=== PATIENT | female | born 1940 | race Caucasian/White ===

== ENCOUNTER → 2016-12-30 07:36 | Outpatient (CLI) | payer MEDICARE, OTHER ==
--- NOTE | ~2016-12-30 | ST ---
PATIENT:BHANU SHEPHERD MEDICAL RECORD: [id number] SEX: F LOCATION:[facility] ORDER #: ADMISSION DATE: 12/30/16 AGE OF PATIENT: 76 REFERRING PHYSICIAN: INTERPRETING PHYSICIAN: MARIAM WATT MD DATE OF SERVICE: 12/30/2016 NUCLEAR STRESS TEST PROCEDURE: Lexiscan stress test. PROCEDURE IN DETAIL: The patient was brought into the nuclear medicine department, placed on the nuclear medicine table in the supine position. The patient had her port accessed for injection of the nuclear tracer and the Lexiscan. The patient had the rest study done via the port at 08:28 a.m., 12.6 mCi of sestamibi was infused. The patient then underwent a standard stress test where Lexiscan was admitted via Standard protocol via the port and then 32.7 mCi of sestamibi was injected at 10:30 a.m. The patient tolerated the procedure well. The patient was in a regular sinus rhythm, heart rate 76. She was in AFib with a heart rate of 76 and peak heart rate after injection 95. Hemodynamically, the patient was stable throughout the procedure and procedure was terminated because of completion. FINDINGS: Image quality was very good. The patient has evidence of mild apical reversible ischemia. The overall ejection fraction was normal at 68%. IMPRESSION: Mild reversible ischemia in the apical region, mild anterior ischemia with preserved LV systolic function. RECOMMENDATIONS: Clinical correlation, however, in the right context, it may be reasonable to go forward with coronary angiography. TRANSINT:[id number] Voice Confirmation ID: [id number] DOCUMENT ID: [id number] MARIAM WATT MD CC: [id number] DICTATION DATE: 12/31/16919 TARIFF COMPILING CLERK: 12/31/16 1422 DEP CLI 12/30/16 [place] [id number] [place] [id number]
== END | disposition home or self-care (01) ==
LOC: D.NM 07:36
DX: I20.9 Angina pectoris, unspecified (principal)

== ENCOUNTER 2017-06-17 07:00 | Outpatient (CLI) | payer MEDICARE, OTHER ==
[~2017-06-17] VITALS: Ht 165.1 cm; Wt 53.6 kg
--- NOTE | ~2017-06-17 | HEMODYNAMI ---
PATIENT:BHANU SHEPHERD MEDICAL RECORD: [id number] : 36 LOCATION:[facility] ADMISSION DATE: 06/17/17 Generatedon:06/17/201710:31 Patient name: BHANU SHEPHERD Patient #: [id number] SSN: : Date of study: 06/17/2017 Page: Of Hemodynamic Procedure Report Patient Data Patient Demographics Procedure consent was obtained First Name: BHANU Gender: Female Last Name: JOAO : 1940 [facility] Initial: RHONDA Age: 77 year(s) Patient #: [id number] Race: Unknown Additional ID: [id number] Contact details Address: [address] [place] [address] State: [place] City: [place] Zip code: [address] Past Medical History Allergies Allergen Reaction Date Comments Reported Other allergy 06/17/2017 Sulfa, Warfarin Admission Admission Data Admission Date: 06/17/2017 Admission Time: 7:00 Admit Source: Other Lab Results Lab Result Date: 06/17/2017 Lab Result Time: 7:40 Biochemistry Name Units Result Min Max BUN mg/dl 16 --(---*)-- 7 18 Creatinine mg/dl 0.9 --(-*--)-- 0.6 1.3 CBC Name Units Result Min Max Hematocrit % 37.2 *-(----)-- 42 54 Hemoglobin g/dl 12.2 *-(----)-- 13.5 17.5 Procedure Procedure Types Cath Procedure Diagnostic Procedure Sedation Charges Moderate Sedation up to 15 minutes PPM/ICD PPM Dual Implant Peripheral Cath Diagnostic Procedure Venography Extremity Left Upper Ext. Venagram Procedure Description Procedure Date Procedure Date: 06/17/2017 Procedure Start Time: 9:54 Procedure End Time: 10:26 Procedure Staff Name Function Jed Goldman MD Performing Physician Jonathan Sandoval RT Monitor Michele Chong RT Scrub Gage Jennings RN Nurse Procedure Data Cath Procedure Fluoroscopy Diagnostic fluoroscopy Total fluoroscopy Time: 4.4 time: 4.4 min min Diagnostic fluoroscopy Total fluoroscopy dose: 38 dose: 38 mGy mGy Contrast Material Contrast Material Type Amount (ml) Visipaque 270 10 Estimated blood loss: 10 ml Procedure Complications No complications Procedure Medications Medication Administration Route Dosage Oxygen NC 2 l/min Heparin Flush Bag added to field 2 bags (1000units/500ml NS) 0.9% NaCl I.V. 100 ml/hr Ancef (1Gm/50ml NS) I.V.P.B 1 g Ancef Irrigation Topical 1 g (1gm/500ml NS) Fentanyl I.V. 50 mcg Versed I.V. 1 mg Fentanyl I.V. 50 mcg Versed I.V. 1 mg Versed I.V. 2 mg Hemodynamics Rest Heart Rate: 82 (bpm) Snapshots Pre Cath Intra NCS Post Cath Vital Signs Time Heart Resp SPO2 etCO2 NIBP (mmHg) Rhythm Pain Sedation Rate (ipm) (%) (mmHg) Status Level (bpm) 9:35:18 99 14 98 0 153/87(128) NSR 0 (11) 10(A) , No pain 9:39:36 74 16 97 0 167/81(125) NSR 0 (11) 10(A) , No pain 9:43:58 82 19 93 0 162/88(127) NSR 0 (11) 10(A) , No pain 9:48:20 75 19 96 0 156/86(122) NSR 0 (11) 10(A) , No pain 9:52:38 75 16 97 0 157/91(121) NSR 0 (11) 10(A) , No pain 9:56:56 79 19 98 0 161/77(134) NSR 0 (11) 9(A) , No pain 10:01:19 75 15 99 0 151/78(117) NSR 0 (11) 9(A) , No pain 10:05:37 76 16 100 0 123/79(106) NSR 0 (11) 9(A) , No pain 10:09:51 75 17 98 0 130/66(99) NSR 0 (11) 9(A) , No pain 10:14:07 72 17 100 0 119/65(93) NSR 0 (11) 9(A) , No pain 10:18:17 66 17 100 0 128/73(91) NSR 0 (11) 9(A) , No pain 10:22:35 60 17 99 0 127/58(90) NSR 0 (11) 9(A) , No pain 10:27:05 85 18 100 0 127/73(84) NSR 0 (11) 9(A) , No pain Medications Time Medication Route Dose Verified Delivered Reason Notes Effe ctiveness by by 9:34:58 Oxygen NC 2 Jed Gage Per l/min Jones Jennings RN physician 9:35:13 Heparin Flush added 2 Jed Gage used for Bag to bags Jones Jennings RN procedure (1000units/500ml field NS) 9:35:23 0.9% NaCl I.V. 100 Jed Gage Per ml/hr Jones Jennings RN physician 9:35:36 Ancef (1Gm/50ml I.V.P.B 1 g Jed Gage Per NS) Jones Jennings RN physician 9:51:38 Fentanyl I.V. 50 Jed Gage for mcg Jones Jennings RN sedation 9:51:44 Versed I.V. 1 mg Jed Gage for Jones Jennings RN sedation 9:54:30 Ancef Irrigation Topical 1 g Jed Gage Per (1gm/500ml NS) Jones Jennings RN physician 9:58:20 Fentanyl I.V. 50 Jed Gage for mcg Jones Jenninsg RN sedation 9:58:23 Versed I.V. 1 mg Jed Gage for Jones Jennings RN sedation 10:01:55 Versed I.V. 2 mg Jed Gage for Jones Jennings RN sedation Procedure Log Time Note 9:15:43 Gaeg Jennings RN sent for patient. Start room use. 9:20:02 Informed consent obtained and on chart 9:20:05 Admit Source: Other 9:21:44 Time tracking: Regular hours 9:21:48 Plan of Care:Hemodynamics will remain stable., Cardiac rhythm will remain stable., Comfort level will be maintained., Respiratory function will remain adequate., Patient/ family verbilizes understanding of procedure., Procedure tolerated without complication., Recovers from procedure without complications.. 9:22:40 Medtronic security representative Tommy Lombardi present for procedure. 9:22:54 H&P Date Dictated: 06/07/2017 Within 30 days and on chart., H&P Addendum completed by physician on day of procedure. (MUST COMPLETE FOR ALL OUTPATIENTS). 9:24:48 Lab Result : BUN 16 mg/dl 9::48 Lab Result : Hematocrit 37.2 % 9::48 Lab Result : Hemoglobin 12.2 g/dl 9::48 Lab Result : Creatinine 0.9 mg/dl 9:24:56 Patient received from Pre/Post Procedure Room to CCL 3 Alert and oriented. Tansferred to table in Supine position. 9:24:57 Warm blankets applied, and francois hugger turned on for patient comfort. 9:24:57 Correct patient and procedure confirmed by team. 9:24:58 ECG and BP/O2 sat monitors applied to patient. 9:24:59 Pre-procedure instructions explained to patient. 9:24:59 Pre-op teaching completed and patient verbalized understanding. 9:25:00 Family in waiting room. 9:25:01 Patient NPO since Midnight. 9:25:17 Patient allergic to Other allergySulfa, Warfarin 9:33:54 Vital chart was started 9:34:58 Oxygen 2 l/min NC was administered by Gage Jennings RN; Per physician; 9:35:13 Heparin Flush Bag (1000units/500ml NS) 2 bags added to field was administered by Gage Jennings RN; used for procedure; 9:35:23 0.9% NaCl 100 ml/hr I.V. was administered by Gage Jennings RN; Per physician; 9:35:36 Ancef (1Gm/50ml NS) 1 g I.V.P.B was administered by Gage Jennings RN; Per physician; 9:41:53 Baseline sample Acquired. 9:41:57 Rhythm: atrial fibrillation 9:41:59 Full Disclosure recording started 9:42:04 Is the patient allergic to Iodine/contrast media? No. 9:42:06 Is patient on blood thinner?No 9:42:11 Patient diabetic? No. 9:42:19 Previous problem with sedation/anesthesia? Yes nausea 9:42:22 Snore? Yes 9:42:24 Sleep apnea? No 9:42:25 Deviated septum? No 9:42:26 Opens mouth fully? Yes 9:42:26 Sticks out tongue? Yes 9:42:32 Airway obstruction? Yes COPD 9:42:40 Dentures? Yes IN 9:47:25 Patient pain scale 0/10 ?. 9:47:37 IV patent on arrival in Rt subclavian with 0.9% NaCl at KVO. 9:47:57 IV patent on arrival in left antecubital with 0.9% NaCl at KVO. 9:48:00 Lab results completed and on chart. 9:48:14 Left chest area was prepped with dura-prep and draped in sterile fashion 9:48:15 Alarms reviewed by R. N. 9:48:16 Sharps counted by scrub and verified by R.N. 9:48:24 Use device set NORRED PPM 9:48:33 2-0 Vicryl Plus [id number] opened to sterile field. 9:48:52 Stapler Skin 35W Proximate Plus (PMW35) opened to sterile field. 9:48:54 Cautery Tip Pickle Pumper opened to sterile field. 9:48:55 Cautery Pushbutton Pencil opened to sterile field. 9:49:19 MICROPUNCTURE 4FR EpicTopic ([id number]) opened to sterile field. 9:51:19 --------ALL STOP TIME OUT------ 9:51:20 Final Timeout: patient, procedure, and site verified with staff and physician. All members of the team are in agreement. 9:51:27 Left chest site verified by team. 9:51:30 Physical assessment completed. ASA score P 2 - A patient with mild systemic disease as per Jed Goldman MD. 9:51:34 Sedation plan: IV Moderate Sedation Medication:Versed, Fentanyl 9:51:38 Fentanyl 50 mcg I.V. was administered by Gage Jennings RN; for sedation; 9:51:44 Versed 1 mg I.V. was administered by Gage Jennings RN; for sedation; 9:53:56 Pre sharps counted by scrub and verified by RN: Sutures: 2; Sponges: 5; Stick needles: 4; Skin needles: 2; Blade: 1; Cautery: 1 9:53:59 Procedure started. 9:54:05 Grounding pad site Right thigh. 9:54:06 Grounding pad site free from injury. 9:54:11 Lidocaine 1% was administered to left subclavicular area by Jed Goldman MD . 9:54:22 2-0 Silk 685H opened to sterile field. 9:54:30 Ancef Irrigation (1gm/500ml NS) 1 g Topical was administered by Gage Jennings RN; Per physician; 9:55:13 MICROPUNCTURE 4FR Cook (W84055) opened to sterile field. 9:56:03 Incision made to left subclavicular area. 9:56:26 Generator pocket made/opened. 9:57:44 Access obtained with 4Fr micropunture. 9:58:20 Fentanyl 50 mcg I.V. was administered by Gage Jennings RN; for sedation; 9:58:23 Versed 1 mg I.V. was administered by Gage Jennings RN; for sedation; 9:59:19 Access obtained with 4Fr micropunture. 10:01:37 Left subclavian vein accessed with 7Fr Peel Away Sheath. 10:01:40 Left subclavian vein accessed with 7Fr Peel Away Sheath. 10:01:50 Ventricular lead inserted and advanced. 10:01:55 Versed 2 mg I.V. was administered by Gage Jennings RN; for sedation; 10:04:33 Atrial lead inserted and advanced. 10:05:10 Medtronic 4074-52 PPM Lead opened to sterile field. 10:05:11 Medtronic 5076-45 PPM Lead opened to sterile field. 10:06:27 Ventricular lead positioned. 10:06:30 Ventricular lead tested. 10:07:16 Atrial lead positioned. 10:07:18 Atrial lead tested. 10:07:57 Peel-a-way sheath was split and removed. 10:07:59 Peel-a-way sheath was split and removed. 10:11:33 Ventricular lead attachment was completed with 2-0 silk. 10:11:43 Atrial lead attachment was completed with 2-0 silk. 10:11:51 Medtronic Advisa MRI PPM Dual Generator [id number] opened to sterile field. 10:14:08 PPM Dual was attached to lead(s) and inserted into pocket. 10:14:23 Device pocket was irrigated with Ancef. 10:14:48 Generator was sutured in place with 2-0 silk. 10:15:04 Subcutaneous closure was completed with 3-0 vicryl. 10:15:40 Skin closure was completed with 35mm [place]. 10:17:43 Lt Chest incision was dressed with gauze eyepad and tegaderm. 10:18:01 Procedure ended.(Physican Out) 10:19:14 Fluoroscopy time 04.40 minutes. 10:19:16 Flurop Dose total: 38 10:19:16 Fluoroscopy dose: 38 mGy 10:19:25 Contrast amount:Visipaque 270 10ml. 10:19:27 Sharps counted by scrub and verified by R.N. 10:19:59 Post sharps counted by scrub and verified by RN: Sutures: 2; Sponges: 5; Stick needles: 4; Skin needles: 2; Blade: 1; Cautery: 1 10:20:17 Immobilizer Sling Medium opened to sterile field. 10:20:37 IV Extension Set opened to sterile field. 10:21:07 Post-procedure physical assessment completed. ASA score P 2 - A patient with mild systemic disease as per Jed Goldman MD. 10:21:10 Post procedure rhythm: paced 10:21:14 Estimated blood loss: 10 ml 10:21:16 Post procedure instruction explained to patient.Patient verbalizes understanding. 10:21:16 Patient needs reinforcement of post procedure teaching. 10:22:53 Procedure type changed to Cath procedure, Diagnostic procedure, Sedation Charges, Moderate Sedation up to 15 minutes, PPM/ICD, PPM Dual Implant, Peripheral Cath Diagnostic Procedure, Venography, Extremity, Left Upper Ext. Venagram 10:26:14 Procedure and supply charges have been captured, reviewed, submitted and are correct. 10:26:16 Procedure Complication : No complications 10:26:20 Vital chart was stopped 10:26:21 See physician's report for complete and final results. 10:26:22 Report given to Pre/Post Procedure Room. 10:26:24 Patient transfered to Pre/Post Procedure Room with Stretcher. 10:26:26 Procedure ended. 10:26:26 Full Disclosure recording stopped 10:26:32 End room use (Document Last) Device Usage Item Name Manufacture Quantity Catalog Hospital Part Current Minimal Lot# / Number Charge Number Stock Stock Serial# Code 2-0 Vicryl Ethicon 1 [id number] 376965 [id number] 5 Plus [id number] Stapler Skin Unknown 1 PMW35 359845 446451 [id number] 5 35W Proximate Plus (PMW35) Cautery Tip Microtek 1 [id number] 520694 739024 432395 5 Pickle Pumper[employer]opl[employer] Inc. Cautery Microtek 1 [id number] 604455 25192 [id number] 5 Pushbutton [employer] Inc. Pencil MICROPUNCTURE [facility] 2 [id number] 088929 738368 5 4FR EpicTopic ([id number]) 2-0 Silk 685H Ethicon 1 685H 650898 49182 805768 5 Medtronic Medtronic 1 4074-52 392713 640054 5 [id number] 4074-52 PPM 2019.11.07 Lead Medtronic Medtronic 1 5076-45 470976 675377 5 [id number] 5076-45 PPM 2019.10.6 Lead Medtronic Medtronic 1 A2DR01 011796 370814 5 [id number] Advisa MRI 2019.06.14 PPM Dual Generator A2DR01 Immobilizer Cardinal 1 05-17017 812945 630456 610055 5 [facility] Extension Hospira 1 02730-37 511415 76636 775102 5 Set Signature Audit [place] Stage Time Signature Unsigned Intra-Procedure 06/17/2017 Jonathan Sandoval 10:30:59 AM RT(R) Signatures Monitor : Jonathan Sandoval RT Signature : Date : Time : [address] [address]
[2017-06-17] MEDS ORDERED: PROVENTIL HFA6.7 GM INH (07:23)
[2017-06-17] MEDS ORDERED: FLUTICASONE PRO16 GM NASAL (07:23)
[2017-06-17] MEDS ORDERED: ASMANEX0.135 GM INH (07:23)
[2017-06-17] MEDS ORDERED: CARTIA XT180 MG PO (07:24)
[2017-06-17] MEDS ORDERED: TOPROL XL25 MG PO (07:24)
[2017-06-17] MEDS ORDERED: OMEPRAZOLE40 MG PO (07:24)
[2017-06-17] MEDS ORDERED: PROBIOTIC250 MG PO (07:24)
[2017-06-17] MEDS ORDERED: GABAPENTIN100 MG PO (07:25)
[2017-06-17] MEDS ORDERED: CO Q-10400 MG PO (07:25)
[2017-06-17] MEDS ORDERED: BIOTIN5 MG PO (07:25)
[2017-06-17] MEDS ORDERED: PERI-COLACE TAB1 TAB PO (07:25)
[2017-06-17 07:38] VITALS: BP 172/92; Ht 165.1 cm; Wt 53.6 kg
[2017-06-17 08:03] LABS: APTT 34.8 SECONDS (22.8-39.4)
[2017-06-17 08:04] LABS: HEMATOCRIT 37.2 % (36.0-48.0); HEMOGLOBIN 12.2 g/dL (12-16); INR 1.06 (0.85-1.17); MCH 29.7 pg (26.0-34.0); MCHC 32.8 g/dL (31.0-37.0); MCV 90.5 fL (80.0-100.0); MEAN PLATELET VOLUME 9.7 fL (7.4-10.4); PROTIME 13.4 SECONDS (11.6-15.0); RBC 4.11 10x6/uL (4.00-5.40); RDW 13.9 % (11.5-14.5); WBC 7.5 10x3/uL (4.8-10.8)
[2017-06-17 08:05] LABS: CALCIUM 9.1 mg/dL (8.5-10.1); CARBON DIOXIDE 26.8 mmol/L (21.0-32.0); CREATININE - SERUM 0.9 mg/dL (0.6-1.3); POTASSIUM - SERUM 3.8 mmol/L (3.5-5.1)
[2017-06-17] MEDS ORDERED: KEFLEX500 MG PO (10:24)
== END 2017-06-17 17:00 | disposition home or self-care (01) ==
LOC: D.CATH 07:00
PROVIDERS: Internal Medicine Cardiovascular Disease
DX: I49.5 Sick sinus syndrome (principal); Z01.812 Encounter for preprocedural laboratory examination

== ENCOUNTER → 2017-07-27 11:57 | Outpatient (CLI) | payer MEDICARE, OTHER ==
[2017-06-17 07:38] VITALS: BMI 19.6
--- NOTE | ~2017-07-27 | EC ---
PATIENT:BHANU SHEPEHRD DATE OF SERVICE: 07/27/17 SEX: F MEDICAL RECORD: [id number] DATE OF : 36 LOCATION:D[facility] AGE OF PATIENT: 77 ADMISSION DATE: 07/27/17 REFERRING PHYSICIAN: INTERPRETING PHYSICIAN: MARIAM WATT MD ECHOCARDIOGRAM REPORT ECHO CHARGES 4 ECHO COMPLETE Date: 07/27 CLINICAL DIAGNOSIS: AFIB/CAD/HTN/SSS/PACER ECHOCARDIOGRAPHIC MEASUREMENTS (adult normal given) AC root (d.<3.7cm) 3.2 cm LV Septum d (<1.2 cm> 1.6 cm Valve Excursion 0.9 cm LV Septum (systole) 1.8 cm Left Atria (s.<4.0cm> 4.8 cm LVPW d(<1.2cm) 1.5 cm RV (d.<2.3cm) 3.9 cm LVPW (sytole) 1.8 cm LV diastole(<5.6CM) 4.1 cm MV E-F(>70mm/sec) cm LV systole 3.1 cm LVOT Diameter 1.1 cm MV exc.(>10mm) 0.9 cm Est.ejection fraction (50-75%) % DOPPLER: LVIT cm/sec A cm/sec E cm/sec LA cm/sec RVSP 46 mmHg LVOT 180 cm/sec AOP1/2T m/s Asc. Ao 310 cm/sec RVOT cm/sec RA cm/sec PA cm/sec AV Gradient Peak 38.32mmHg AV Mean 24.37mmHg AV Area 1.3 cm MV Gradient Peak mmHg MV Mean mmHg MV Area cm COMMENTS: Tourist Information Assistant: 2 MICAELA DE LA CRUZ Relief Driller: 4 Dr. Watt TAPE# PACS Pericardial Effusion N DATE OF SERVICE: PROCEDURE: Transthoracic echocardiogram. FINDINGS: 1. Left ventricle shows left ventricular hypertrophy. Inflow characteristics were not measured because of atrial fibrillation. The overall ejection fraction 65%. 2. The left atrium is moderately dilated at 4.8. 3. The aortic valve is thickened, sclerotic. The valve has a noncoronary cusp ECHOCARDIOGRAM REPORT [id number] BHANU SHEPHERD that is nonmobile and thickened. The right coronary cusp and the left coronary cusp appeared to be free and mobile. There is resultant aortic stenosis that is in the moderate range with a peak gradient of 38 mmHg. There is mild aortic insufficiency. The calculated valve area is about 1.3 to 1.4 cm-squared. 4. The mitral valve is again thickened. There is mitral annular calcification. There is mild to moderate mitral regurgitation. Inflow velocities are mildly elevated across the mitral valve, consistent with mild mitral stenosis. 5. The tricuspid valve has severe tricuspid regurgitation with an RVSP of 46 mmHg. 6. The right ventricle is dilated. There is a pacer artifact in the right ventricle extending from the right atrium and right ventricle. Right ventricle itself is mildly hypokinetic. 7. The right atrium is severely dilated. 8. The interatrial septum appears to be intact. 9. The pulmonic valve is grossly normal. TRANSINT:[id number] Voice Confirmation ID: [id number] DOCUMENT ID: [id number] MARIAM WATT MD at 0741 CC: [id number] DICTATION DATE: 08/02/17 1039 CAGE SUPERVISOR: 08/02/17 1209 DEP CLI 07/27/17 [place] [address] [place] [address]
[~2017-07-27 11:57] MED LIST: ASMANEX0.135 GM INH; BIOTIN5 MG PO; CARTIA XT180 MG PO; CO Q-10400 MG PO; FLUTICASONE PRO16 GM NASAL; GABAPENTIN100 MG PO; KEFLEX500 MG PO; OMEPRAZOLE40 MG PO; PERI-COLACE TAB1 TAB PO; PROBIOTIC250 MG PO; PROVENTIL HFA6.7 GM INH; TOPROL XL25 MG PO
[2017-07-27 14:38] LABS: ALBUMIN 3.5 g/dL (3.4-5.0); ANION GAP 13.2 mmol/L (8-16); BILIRUBIN - DIRECT 0.09 mg/dL (0.00-0.30); BILIRUBIN - INDIRECT 0.19 mg/dL (0.00-1.00); BILIRUBIN - TOTAL 0.28 mg/dL (0.2-1.3); CARBON DIOXIDE 27.6 mmol/L (21.0-32.0); CHOL - HDL RATIO 3.1 ratio (2.3-4.1); LDL-HDL RATIO 1.8 ratio (1.5-3.5); POTASSIUM - SERUM 3.8 mmol/L (3.5-5.1); PROTEIN - SERUM 7.5 g/dL (6.4-8.2)
== END | disposition home or self-care (01) ==
LOC: D.ECHO 11:57
PROVIDERS: Internal Medicine Cardiovascular Disease
DX: I48.91 Unspecified atrial fibrillation (principal); I25.10 Atherosclerotic heart disease of native coronary artery without angina pectoris; I49.5 Sick sinus syndrome

== ENCOUNTER → 2017-08-17 10:38 | Outpatient (CLI) | payer MEDICARE, OTHER ==
[2017-06-17 07:38] VITALS: BMI 19.6
[2017-08-17 11:30] LABS: BASOPHILS 0.1 % (0-2); EOSINOPHILS 0.7 % (0-7); HEMATOCRIT 36.2 % (36.0-48.0); HEMOGLOBIN 12.2 g/dL (12-16); IMMATURE GRANULOCYTES 0.4 % (0-5); LYMPHOCYTES 18.9 % (15-50); MCH 30.2 pg (26.0-34.0); MCHC 33.7 g/dL (31.0-37.0); MCV 89.6 fL (80.0-100.0); MEAN PLATELET VOLUME 9.3 fL (7.4-10.4); MONOCYTES 7.9 % (2-11); PLATELET COUNT 256 10x3/uL (130-400); RBC 4.04 10x6/uL (4.00-5.40); RDW 13.4 % (11.5-14.5); WBC 8.4 10x3/uL (4.8-10.8)
[2017-08-17 11:46] LABS: ANION GAP 13.3 mmol/L (8-16); CARBON DIOXIDE 25.5 mmol/L (21.0-32.0); POTASSIUM - SERUM 3.8 mmol/L (3.5-5.1)
== END | disposition home or self-care (01) ==
LOC: D.LAB 10:15
PROVIDERS: Internal Medicine Cardiovascular Disease
DX: I25.10 Atherosclerotic heart disease of native coronary artery without angina pectoris (principal); I48.91 Unspecified atrial fibrillation

== ENCOUNTER → 2018-01-03 09:04 | Outpatient (CLI) | payer MEDICARE, OTHER ==
[2017-06-17 07:38] VITALS: BMI 19.6
[2018-01-03 09:37] LABS: BASOPHILS 0.3 % (0-2); EOSINOPHILS 4.8 % (0-7); HEMOGLOBIN 11.8 g/dL (12-16); IMMATURE GRANULOCYTES 0.3 % (0-5); LYMPHOCYTES 18.3 % (15-50); MCHC 33.7 g/dL (31.0-37.0); MCV 89.1 fL (80.0-100.0); MEAN PLATELET VOLUME 8.9 fL (7.4-10.4); MONOCYTES 12.9 % (2-11); NEUTROPHILS 63.4 % (40-80); PLATELET COUNT 246 10x3/uL (130-400); RBC 3.93 10x6/uL (4.00-5.40); RDW 13.1 % (11.5-14.5); WBC 6.9 10x3/uL (4.8-10.8)
[2018-01-03 10:17] LABS: ALBUMIN 3.1 g/dL (3.4-5.0); ANION GAP 13.5 mmol/L (8-16); BILIRUBIN - TOTAL 0.4 mg/dL (0.2-1.3); CALCIUM 8.4 mg/dL (8.5-10.1); CARBON DIOXIDE 26.4 mmol/L (21.0-32.0); POTASSIUM - SERUM 3.9 mmol/L (3.5-5.1)
== END | disposition home or self-care (01) ==
LOC: D.LAB 08:15
PROVIDERS: Internal Medicine Cardiovascular Disease
DX: I25.10 Atherosclerotic heart disease of native coronary artery without angina pectoris (principal); R53.83 Other fatigue; R06.02 Shortness of breath; I48.91 Unspecified atrial fibrillation; Z95.0 Presence of cardiac pacemaker

== ENCOUNTER → 2018-01-12 10:11 | Outpatient (CLI) | payer MEDICARE, OTHER ==
[2017-06-17 07:38] VITALS: BMI 19.6
[2018-01-12 11:01] LABS: ANION GAP 11.5 mmol/L (8-16); CALCIUM 8.5 mg/dL (8.5-10.1); CARBON DIOXIDE 27.2 mmol/L (21.0-32.0); CREATININE - SERUM 1.2 mg/dL (0.6-1.3); POTASSIUM - SERUM 4.7 mmol/L (3.5-5.1)
== END | disposition home or self-care (01) ==
LOC: D.LAB 10:11
PROVIDERS: Internal Medicine Cardiovascular Disease
DX: I50.9 Heart failure, unspecified (principal); I42.9 Cardiomyopathy, unspecified

== ENCOUNTER → 2018-01-28 07:38 | Outpatient (CLI) | payer MEDICARE, OTHER ==
[2017-06-17 07:38] VITALS: BMI 19.6
--- NOTE | ~2018-01-28 | EC ---
PATIENT:BHANU SHEPHERD DATE OF SERVICE: 01/28/18 SEX: F MEDICAL RECORD: [id number] DATE OF : 36 LOCATION:D[facility] AGE OF PATIENT: 78 ADMISSION DATE: 01/28/18 REFERRING PHYSICIAN: INTERPRETING PHYSICIAN: MARIAM WATT MD ECHOCARDIOGRAM REPORT ECHO CHARGES 4 ECHO COMPLETE Date: 01/28/18 CLINICAL DIAGNOSIS: CAD/A-FIB ECHOCARDIOGRAPHIC MEASUREMENTS (adult normal given) AC root (d.<3.7cm) 2.7 cm LV Septum d (<1.2 cm> 1.2 cm Valve Excursion 0.5 cm LV Septum (systole) 1.7 cm Left Atria (s.<4.0cm> 3.9 cm LVPW d(<1.2cm) 1.1 cm RV (d.<2.3cm) 2.4 cm LVPW (sytole) 1.5 cm LV diastole(<5.6CM) 4.2 cm MV E-F(>70mm/sec) cm LV systole 2.7 cm LVOT Diameter 1.5 cm MV exc.(>10mm) cm Est.ejection fraction (50-75%) % DOPPLER: LVIT cm/sec A cm/sec E 157 cm/sec LA cm/sec RVSP 46.2 mmHg LVOT 69.0 cm/sec AOP1/2T m/s Asc. Ao 224 cm/sec RVOT 33.0 cm/sec RA cm/sec PA 67.0 cm/sec AV Gradient Peak 20.2 mmHg AV Mean 11.0 mmHg AV Area 0.4 cm MV Gradient Peak 8.9 mmHg MV Mean 3.0 mmHg MV Area cm COMMENTS: Frog Or Oyster Farmworker: 1 ROBERT MEDRANOOE Cement Sprayer Helper: Cesar Watt TAPE# PACS Pericardial Effusion N DATE OF SERVICE: PROCEDURE: Transthoracic echocardiogram. FINDINGS: 1. The left ventricle is normal to hyperdynamic, ejection fraction of 60+ %. The patient has concentric left ventricular hypertrophy. Inflow characteristics were not helpful because of atrial dysrhythmia. 2. Mildly dilated left atrium. 3. The aortic valve shows a sclerotic aortic valve. The peak gradient ECHOCARDIOGRAM REPORT [id number] BHANU SHEPHERD demonstrated was normal. There is no obvious significant aortic stenosis. The patient does have mild aortic insufficiency. 4. The mitral valve is shown to have moderate mitral regurgitation. There is mitral annular calcification. 5. Tricuspid valve has xjruvgek-uq-nkwgty tricuspid regurgitation. The right ventricular systolic pressures of 46 mmHg. 6. The right ventricle appears to be normal to mildly dilated. Not well visualized. 7. There is trace pulmonic insufficiency. 8. IVC is normal size. 9. The pulmonic valve is grossly normal. TRANSINT:[id number] Voice Confirmation ID: [id number] DOCUMENT ID: [id number] MARIAM WATT MD CC: [id number] DICTATION DATE: 02/07/18 0549 HISTORIC SITE ADMINISTRATOR: 02/07/18 0747 DEP CLI 01/28/18 [facility] [address] [place] [address]
== END | disposition home or self-care (01) ==
LOC: D.ECHO 07:38
DX: I25.10 Atherosclerotic heart disease of native coronary artery without angina pectoris (principal); I48.91 Unspecified atrial fibrillation

== ENCOUNTER → 2018-08-15 10:10 | Outpatient (CLI) | payer MEDICARE, OTHER ==
[2017-06-17 07:38] VITALS: BMI 19.6
== END | disposition home or self-care (01) ==
LOC: D.HCCARDIO 10:10
PROVIDERS: ATTEND Internal Medicine Cardiovascular Disease
DX: I35.0 Nonrheumatic aortic (valve) stenosis (principal)